=== PATIENT | female | born 1980 | race Caucasian/White ===

== ENCOUNTER 2017-07-02 22:32 | Emergency (ER) | payer MEDICAID ==
[~2017-07-02] VITALS: Ht 160 cm; Wt 90.3 kg
[2017-07-02 22:40] VITALS: Ht 160 cm; Wt 90.3 kg
[2017-07-03 00:08] VITALS: BP 141/89
== END 2017-07-03 00:08 | disposition home or self-care (01) ==
LOC: ED 22:32
DX: B34.9 Viral infection, unspecified (principal)
CPT/HCPCS: J1100

== ENCOUNTER 2019-02-06 06:50 | Emergency (ER) | payer MEDICAID ==
[~2019-02-06] VITALS: Ht 160 cm; Wt 95.7 kg
[2019-02-06 06:55] VITALS: Ht 160 cm; Wt 95.7 kg
[2019-02-06 08:29] VITALS: BP 119/83
== END 2019-02-06 08:29 | disposition home or self-care (01) ==
LOC: ED 06:50
DX: O9A.211 Injury, poisoning and certain other consequences of external causes complicating pregnancy, first trimester (principal); S93.601A Unspecified sprain of right foot, initial encounter; Z3A.10 10 weeks gestation of pregnancy; X50.1XXA Overexertion from prolonged static or awkward postures, initial encounter; Y93.89 Activity, other specified; Y92.89 Other specified places as the place of occurrence of the external cause; Y99.8 Other external cause status
CPT/HCPCS: Q0092

== ENCOUNTER 2019-02-10 20:42 | Emergency (ER) | payer MEDICAID ==
[~2019-02-10] VITALS: Ht 172.7 cm; Wt 95.7 kg
[2019-02-10 21:00] VITALS: Ht 172.7 cm; Wt 95.7 kg
[2019-02-10 21:33] LABS: BASOPHIL % 0.5 % (0-2); PLATELET COUNT 343 x10^3mcL (130-400)
[2019-02-10 21:34] LABS: RED CELL DISTRIBUTION WIDTH 19.7 % (11.5-14.5)
[2019-02-10 22:24] LABS: UA SPECIFIC GRAVITY >=1.030 (1.005-1.035); microscopic required? YES; urine erythrocyte 2+ (NEGATIVE)
[2019-02-11 00:05] VITALS: BP 132/84
== END 2019-02-11 00:05 | disposition home or self-care (01) ==
LOC: ED 20:42
PROVIDERS: Emergency Medicine
DX: O02.1 Missed abortion (principal); O20.0 Threatened abortion
CPT/HCPCS: 36415